=== PATIENT | female | born 1995 | race Two or more races ===

== ENCOUNTER 2024-08-12 05:18 | Emergency (ER) | payer MEDICAID, SELFPAY ==
[2024-08-12 05:20] VITALS: BMI 37.9
[2024-08-12 05:34] VITALS: BP 113/79; PULSE 70; RESP 16; TEMP 37.2; O2SAT 100
--- NOTE | 2024-08-12 06:00 | PD.EDRME ---
Rapid Medical Screening Exam RME Arrival date/time: 08/12/24 05:18 Chief Complaint: General Adult/Misc Complain Vital signs: Vital Signs Temperature 98.9 F 08/12/24 05:34 Pulse Rate 70 08/12/24 05:34 Respiratory Rate 16 08/12/24 05:34 Blood Pressure 113/79 08/12/24 05:34 Pulse Oximetry (%) 100 08/12/24 05:34 Oxygen Delivery Method Room Air 08/12/24 05:34 Vital signs reviewed by provider: Yes RME Narrative: 29-year-old patient presents to the ED with complaint of severe vertigo type symptoms with nausea and vomiting and the need to keep their eyes closed.. This woke the patient up out of a sound sleep at approximately 3 AM. They went to bed last night and felt a little bit odd with the room spinning but did not think anything of it. They deny any recent illness with fever, chills, cough, upper respiratory complaints including no runny nose, nasal congestion, ear pain, or sore throat. I have greeted and performed a focused initial assessment of this patient. A comprehensive ED assessment and evaluation of the patient, analysis of all test results, and completion of the medical decision making process will be conducted by additional ED providers.
--- NOTE | 2024-08-12 06:06 | XR_ITS ---
Examination: CT brain head without contrast. 2-D sagittal coronal reconstructions Date and time of exam:August 12, 2024 0719 hours Comparison May 08, 2012 INDICATIONS: Onset severe vertigo beginning 4:00 AM this morning CTDI: vol (mGy):50.4 DLP: (mGycm):966 Technique: Multiple CT axial sections of the brain have been obtained, 5 mm slice thickness. Contrast has not been administered. 2-D sagittal, coronal reconstructions have been obtained Low dose protocols were performed. One or more of the following dose reduction techniques were used; automated exposure control, adjustment of the mA and/or KV according to patient size, use of iterative reconstruction technique. Findings: No significant ventricular enlargement. Intra-axial or extra-axial hemorrhage density is not seen. No mass effect or midline shift Basal cisterns are not remarkable. Fourth ventricle is midline. Cranial vault intact. Impression: Negative for acute hemorrhage, mass effect or midline shift If symptoms persist, consider brain MRI follow-up
--- NOTE | 2024-08-12 06:06 | EKG_ITS ---
[facility] Test Date: 2024-08-12 Pat Name: GRAYSON GONZALEZ Department: Room: - Gender: Female [employer]: : 1995 Requested By: Melissa Del Rio Order Number: [id number] Reading MD: Melissa Del Rio Measurements Intervals [place] Rate: 74 P: 11 DE: 144 QRS: 4 QRSD: 97 T: -10 QT: 367 QTc: 408 Interpretive Statements SINUS RHYTHM POSSIBLE ANTERIOR MYOCARDIAL INFARCTION , OF INDETERMINATE AGE [30 ms Q WAVE IN V3/V4, OR R < 0.2 mV IN V4] Compared to ECG 04/30/2019 22:48:43 Myocardial infarct finding now present Sinus tachycardia no longer present /store/S0/[id number]/ecg/[id number].pdf
--- NOTE | 2024-08-12 06:06 | XR_ITS ---
Examination: PA chest single view TECHNIQUE: upright PA chest single view Date and time: August 12, 2024 0618 hours Comparison May 11, 2019 INDICATIONS: Severe vertigo and nausea today FINDINGS: Mild prominence of ventricle. No pneumonia or pulmonary edema The osseous structures are intact IMPRESSION: No pneumonia or pulmonary edema
[2024-08-12 06:37] LABS: Basophils % (Auto) 0 % (0-2.5); Eosinophils % (Auto) 0 % (0-10); Hematocrit 42.2 % (36.0-46.0); Hemoglobin 13.7 g/dL (12.0-16.0); Immature Granulocytes % (Auto) 0 % (0-0); Immature Granulocytes Auto 0.05 Thou/mm3 (0.00-0.00); Lymphocytes # (Auto) 1.5 Thou/mm3 (1.0-4.8); Lymphocytes % (Auto) 11 % (10-50); Mean Corpuscular HGB Conc 32.5 g/dl (31.0-37.0); Mean Corpuscular Hemoglobin 25.9 pg (25.0-35.0); Mean Corpuscular Volume 80 fL (80-100); Monocytes # (Auto) 0.6 Thou/mm3 (0.0-0.8); Monocytes % (Auto) 5 % (0-12); Neutrophils # (Auto) 11.4 Thou/mm3 (1.8-7.7); Neutrophils % (Auto) 84 % (37-80); Nucleated Red Blood Cell % 0 /100 WBC (0); Platelet Count 405 Thou/mm3 (140-440); RDW Standard Deviation 41.8 fL (36.4-46.3); Red Blood Count 5.29 Miln/mm3 (4.00-5.20); White Blood Count 13.6 Thou/mm3 (3.6-11.0)
[2024-08-12] MEDS: MECLIZINE HCL 25 MG TABLET 50 MG PO (06:53)
[2024-08-12 06:54] LABS: Alanine Aminotransferase 14 U/L (10-49); Albumin, Serum 4.7 gm/dL (3.5-5.0); Albumin/Globulin Ratio 1.4 (1.2-2.2); Alkaline Phosphatase 108 U/L (46-116); Amylase 47 U/L (30-118); Anion Gap 9 (7-16); Aspartate Amino Transferase 16 U/L (0-34); BUN/Creatinine Ratio 10 Ratio (12-20); Bilirubin,Total 0.3 mg/dL (0.3-1.2); Blood Urea Nitrogen 9 mg/dL (9-23); Calcium 9.2 mg/dL (8.3-10.6); Calcium (Corrected) 9.2 mg/dL (8.5-10.1); Carbon Dioxide 25.8 mMol/L (20.0-31.0); Chloride 104 mMol/L (98-107); Creatinine (Component) 0.9 mg/dL (0.6-1.3); Estimated Creatinine Clearance 117.7 mL/min (>60); Globulin 3.3 gm/dL (2.3-3.5); Glucose 121 mg/dL (74-106); Lipase 29 U/L (12-53); Osmolality,Calculated 277 (275-295); Potassium 4.4 mMol/L (3.4-5.1); Sodium 139 mMol/L (136-145); Troponin I < 0.002 ng/mL (0.0-0.045); eGFR > 60 See Note
[2024-08-12] MEDS: ONDANSETRON ODT 4 MG TABRAP PO (06:54)
[2024-08-12 07:27] LABS: Collection Type, Urine Clean Catch
[2024-08-12 07:41] LABS: Amphetamine/Methamp Scrn,U Negative (Negative); Barbiturate Screen,Urine Negative (Negative); Benzodiazepines Screen,Urine Negative (Negative); Benzoylecgonine Screen, Ur Negative (Negative); Fentanyl Screen,Urine Negative (Negative); Opiate Screen,Urine Negative (Negative); THC Screen,Urine Negative (Negative)
[2024-08-12 07:46] LABS: Bacteria,Urine Rare; Bilirubin,Urine Negative (Negative); Blood,Urine 3+ (Negative); Clarity,Urine Clear (Clear/Hazy); Color,Urine Lt-Yellow (Lt Yel-Yel); Glucose, Urine Negative (Negative); Ketones,Urine Negative (Negative); Leukocyte Esterase,Urine Positive (Negative); Nitrite,Urine Negative (Negative); Protein,Urine Negative (Neg - Trace); RBC,Urine 2 /hpf (0-3); Squamous Epithelial Cell,Urine 1 /hpf (0-5); Urobilinogen,Urine Negative mg/dL (0.0-1.0); WBC,Urine 6 /hpf (0-5)
[2024-08-12 08:05] VITALS: BP 118/74; PULSE 74; RESP 16; O2SAT 100
[2024-08-12 08:25] VITALS: BP 118/74; PULSE 70; RESP 21; TEMP 36.8; O2SAT 98
[2024-08-12 08:33] LABS: Alcohol, Blood Medical < 3.0 mg/dL (0-10.0)
--- NOTE | 2024-08-12 09:28 | EDNOTE_ITS ---
<Statement entered by Ronit Cagle MD - 08/14/24 06:16> I, Ronit Cagle MD, have reviewed the history, exam, and assessment of the patient. I have evaluated the patient independently and agree with the plan of care documented by [ ]. All diagnostic studies were reviewed and discussed. I confirm the diagnosis as documented by the Resident. I was present during the Medical Decision Making for this patient. The patient's plan of care was created between myself and the Resident and consistent with our discussion of the patient's case. ED General RME/HPI General Chief complaint: General Adult/Misc Complain Stated complaint: DIZZINESS, SHOULDER PAIN Arrival date/time: 08/12/24 05:18 RME / HPI RME / HPI narrative: The patient is a 29 year old transgender male with significant PMH of asthma and on transitional hormonal therapy with medoxy-progesterone presented with c/o dizziness and vertigo that started this morning at 3 am. He reported the symptoms associated with headache, nausea and few episodes of vomiting along with Rt ear fullness. 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 However, he denies any fever, chills, sore throat, recent sick contacts, rhinorrhea or nasal congestion. He denies any abdominal pain, any changes in bowel or bladder habit or leg swelling. Related Data Previous Rx's ?Medication ?Instructions ?Recorded ibuprofen 800 mg tablet 800 mg PO Q8H #30 tabs 09/09 ibuprofen 600 mg tablet 600 mg PO QID #30 tabs 05/01 ibuprofen 600 mg tablet 600 mg PO Q6H PRN pain #30 t abs 03/07/22 meclizine 25 mg tablet 25 mg PO TID PRN dizziness o r 08/12/24 vertigo #20 tabs Allergies Allergy/AdvReac Type Severity Reaction Status Date / Time No Known Drug Allergies Allergy Verified 03/07/22 18:42 Review of Systems Review of Systems Narrative Review of Systems: Negative except as above Past Medical History Past Medical History RESPIRATORY: Positive Asthma Surgical History OTHER SURGICAL HX: denies pshx Social History SMOKING STATUS: Never smoker SUBSTANCE USE: does not use ALCOHOL: Never ED Exam Narrative Physical exam: General: Obese, cooperative gentleman, no acute distress, Alert and Oriented x 3 HEENT: Moist mucous membranes, oropharynx clear, no nystagmus appreciated, Hallpike maneuver negative Neck: Supple, No masses, No JVD CVS: S1S2 Regular rate and rhythm, No murmurs, rubs or gallops Lungs: Clear to auscultation with no accessory use, no wheeze no rhonchi Abd: Soft, NT/ND, +BS, no organomegaly Ext: No edema, warm and well perfused Skin: No rash Psych: Appropriate mood and affect Course Course Course Narrative: 9:30 am: Jose Rafael's maneuver performed x3 Quality Measures none Orders Category Date Time Status EKG (ED ONLY) *Do not use* NOW Care 08/12/24 06:06 Completed Insert IV NOW Care 08/12/24 09:35 Active NPO STAT Care 08/12/24 06:06 Active Orthostatic Vitals NOW Care 08/12/24 09:[address] head/brain wo con Stat Exams 08/12/24 06:06 Completed EKG (ED Only) Stat Exams 08/12/24 06:06 Ordered XR chest 1V portable Stat Exams 08/12/24 06:06 Completed Alcohol, Blood Medical Stat Lab 08/12/24 06:26 Completed Amylase Stat Lab 08/12/24 06:26 Completed CBC Stat Lab 08/12/24 06:26 Completed Comprehensive Metabolic Panel Stat Lab 08/12/24 06:26 Completed Drug Screen,Urine Stat Lab 08/12/24 07:14 Completed Lipase Stat Lab 08/12/24 06:26 Completed Troponin I Stat Lab 08/12/24 06:26 Completed Urinalysis Stat Lab 08/12/24 07:14 Completed Urine Culture Stat Lab 08/12/24 07:14 Received Meclizine HCl [Antivert] Med 08/12/24 06:17 Discontinued 50 mg PO X1 ONE Ondansetron Odt [Zofran Odt] Med 08/12/24 06:04 Discontinued 4 mg PO X1 ONE Promethazine Inj [Phenergan Inj] 25 mg Med 08/12/24 09:25 Discontinued Sodium Chloride 0.9% [Ns] 50 ml IV X1 Vital Signs Vital signs: Vital Signs Temperature 98.9 F 08/12/24 05:34 Pulse Rate 70 08/12/24 05:34 Respiratory Rate 16 08/12/24 05:34 Blood Pressure 113/79 08/12/24 05:34 Pulse Oximetry (%) 100 08/12/24 05:34 Oxygen Delivery Method Room Air 08/12/24 05:34 Discharge Plan Plan Patient Disposition: HOME (Self Care) Prescriptions/Referrals Prescriptions/Med Rec: New meclizine 25 mg tablet 25 mg PO TID MDD 3 PRN (Reason: dizziness or vertigo) Qty: 20 0RF No Action ibuprofen 800 mg tablet 800 mg PO Q8H Qty: 30 0RF ibuprofen 600 mg tablet 600 mg PO QID Qty: 30 0RF ibuprofen 600 mg tablet 600 mg PO Q6H PRN (Reason: pain) Qty: 30 0RF Referrals: Elma Lind CAREER TECHNICAL EDUCATION INSTRUCTOR [Primary Care Provider] - In 1 week Problem List Clinical Impression: Benign paroxysmal positional vertigo of right ear Patient/Caregiver Discharge Instructions Discharge Activity: activity as tolerated Education Materials: Vestibular Rehabilitation Therapy, BPPV Additional Instructions: You have been discharged by Dr. Lloyd with the following recommendations: Please follow-up with your PCP within 1 week of discharge You have been started on: -Meclizine 25 Mg up to 3 times a day for dizziness or vertigo. Continue taking all other medicines as prescribed -Recommended to return back to emergency department if your symptoms persists or worsens Print Language: Nigerian Stand Alone Forms: [employer] Info., Patient Portal Info Letter MDM Narrative MDM hospital course: The patient is a 29 year old transgender male with significant PMH of asthma and on transitional hormonal therapy with medoxy-progesterone presented with c/o dizziness and vertigo that started this morning at 3 am. He reported the symptoms associated with headache, nausea and few episodes of vomiting along with Rt ear fullness. 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 However, he denies any fever, chills, sore throat, recent sick contacts, rhinorrhea or nasal congestion. He denies any abdominal pain, any changes in bowel or bladder habit or leg swelling. His initial vitals were blood pressure 113/79, pulse 70, RR 16, temperature 98.9, saturating 100% on room air. Orthostatic vitals were stable. Labs revealed white count of 13.6, with normal CMP, UA was negative for UTI. U-tox was negative, head CT was negative for mass affect, midline shift or acute hemorrhage. CXR negative for pulmonary edema or pneumonia. EKG revealed sinus rhythm. Patient underwent Jose Rafael's maneuver x 3 in the ED, was received meclizine 50 Mg p.o. x 1, ondansetron 4 Mg p.o. x 1 and promethazine 25 Mg IV x 1. After these medications and procedure for symptoms were mildly improving. The patient was planned to discharge home. The patient's management plan was discussed with my attending physician MD Jose Alfredo Solis MD, PGY2 EKG EKG Interpretation narrative: See above Medication Administration(s) Medication Administration History Discontinued Medications Promethazine HCl 25 mg/ Sodium (Chloride) 51 mls @ 2.5 mls/min IV X1 ONE Stop: 08/12/24 09:45 Last Admin: 08/12/24 10:52 Dose: 2.5 mls/min Documented By: JENY Meclizine HCl (Meclizine Hcl 25 Mg Tablet) 50 mg PO X1 ONE Stop: 08/12/24 06:18 Last Admin: 08/12/24 06:53 Dose: 50 mg Documented By: ANUPAM Ondansetron HCl (Ondansetron Odt 4 Mg Tabrap) 4 mg PO X1 ONE; Protocol Stop: 08/12/24 06:05 Last Admin: 08/12/24 06:54 Dose: 4 mg Documented By: ANUPAM See above Diagnosis Differential diagnosis: BPPV, orthostatic hypotension, M?ni?re's disease Most likely dx, and/or detailed dx discussion: BPPV Dispositon Disposition: Discharge Home
[2024-08-12 10:52] VITALS: BP 110/87; BP 111/83; BP 125/80; PULSE 62; PULSE 67; PULSE 78
[2024-08-12] MEDS: PROMETHAZINE INJ 25 MG in SODIUM CHLORIDE 0.9% 50 ML IV (10:52)
[2024-08-12 11:35] VITALS: BP 111/83; PULSE 71; RESP 16; TEMP 36.7; O2SAT 99
== END 2024-08-12 11:35 | disposition home or self-care (01) ==
PROVIDERS: Physician Assistant; Emergency Provider Emergency Medicine; PCP Nurse Practitioner Family
DX: H81.11 Benign paroxysmal vertigo, right ear (principal); J45.909 Unspecified asthma, uncomplicated
CPT/HCPCS: 36415; 70450; 71045; 80053; 80307; 80320; 81001; 82150; 83690; 84484; 85025; 87086; 93005; 96365; 99284; J2550; Q0162; A9270; G0480